=== PATIENT | male | born 1995 | race African-American/Black ===

== ENCOUNTER 2017-09-22 14:19 | Inpatient (IN) ==
[2017-09-23] MEDS ORDERED: Bisacodyl 10 MG Supp RECTAL PRN (01:22)
[2017-09-23] MEDS ORDERED: Zolpidem Tartrate 5 MG Tablet PO PRN (01:22)
[2017-09-23] MEDS ORDERED: Acetaminophen 325 MG Tablet PO PRN (01:22)
[2017-09-23] MEDS: Sod Chloride 0.9% Inj 1,000 ML IV.CONT SCH ×5 (02:14→23:00)
[2017-09-23 07:50] LABS: Baso % (Auto) 0.3 % (0.0-2.0); Eos # (Auto) 0.1 th/mm3 (0.0-0.4); Eos % (Auto) 0.9 % (0.0-4.0); Hematocrit 41.1 % (39.0-51.0); Lymph # (Auto) 3.2 th/mm3 (1.0-4.8); Lymph % (Auto) 38.2 % (9.0-44.0); Mean Corpuscular HGB Conc 34.8 % (32.0-36.0); Mean Corpuscular Hemoglobin 29.1 pg (27.0-34.0); Mean Platelet Volume 8.6 fL (7.0-11.0); Mono % (Auto) 12.2 % (0.0-8.0); Neut # (Auto) 4.1 th/mm3 (1.8-7.7); Neut % (Auto) 48.4 % (16.0-70.0); Platelet Count 184 th/mm3 (150-450); Red Blood Count 4.92 mil/mm3 (4.50-5.90); Red Cell Distribution Width 12.3 % (11.6-17.2); White Blood Count 8.4 th/mm3 (4.0-11.0)
[2017-09-23 07:57] LABS: Chloride 105 meq/L (98-107); Potassium 3.9 meq/L (3.5-5.1); Sodium 139 meq/L (136-145)
[2017-09-23 08:01] LABS: Albumin 3.7 g/dL (3.4-5.0); Anion Gap 5 meq/L (5-15); Blood Urea Nitrogen 15 mg/dL (7-18); Calcium 8.6 mg/dL (8.5-10.1); Carbon Dioxide 28.6 meq/L (21.0-32.0); Glucose,Random 95 mg/dL (74-106)
[2017-09-23 08:02] LABS: Hemoglobin 14.3 gm/dL (13.0-17.0); Mean Corpuscular Volume 83.5 fL (80.0-100.0)
[2017-09-23 08:04] LABS: Alanine Aminotransferase 37 U/L (9-52)
[2017-09-23 08:05] LABS: Aspartate Aminotransferase 52 U/L (15-39); Glomerular Filtration Rate Greater Than 89 mL/min (>89)
[2017-09-23 08:06] LABS: Total Protein 7.4 g/dL (6.4-8.2)
[2017-09-23 08:07] LABS: Alkaline Phosphatase 71 U/L (45-117)
[2017-09-23 08:19] LABS: Creatine Kinase 2567 U/L (39-308)
[2017-09-23 08:36] LABS: CKMB Percent 0.3 % (0.0-4.0)
--- NOTE | 2017-09-23 09:38 | P.HP ---
History of Present Illness Primary Care Physician: UNKNOWN Chief Complaint: Weakness History of Present Illness: This is a pleasant 21-year-old male patient who presented to the ED with complaints of generalized weakness and dehydration. Patient states that his symptoms started when he noticed a bee sting on his right hand roughly 5 days ago, states he saw his PCP, was given Solu-Medrol as well as Benadryl. Patient admits to taking 1 dose of Solu-Medrol and 1 dose of Benadryl, has been by started to improve. He states that around Wednesday during work, he became significantly weak, states he felt overheated with associated nausea and vomiting. 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 He states along with the symptoms he also had some chest tightness and shortness of breath which prompted his presentation to the ED. He denies any recent illness including fever, chills, cough, abdominal pain , nausea, vomiting, diarrhea or dysuria. Patient denies any medical history. He does state that he had asthma as a child although has not had any exacerbating symptoms since a young age. Patient denies any previous surgery. Denies any significant family medical history. Does not smoke cigarettes nor drink alcohol. Upon assessment today, patient states he feels much improved, almost at baseline. CPK on presentation was in the 3000s, has improved to 2500 today. Patient is eating well without any nausea or vomiting. He still feels relatively weak has not gotten out of bed yet today. Chest x-ray on presentation was negative. EKG reviewed showing sinus rhythm with no ST changes. CBC with mild leukocytosis. Some acute kidney injury noted although creatinine has improved today. - Diagnosis (1) Rhabdomyolysis Inpatient Certification: I certify that the inpatient services were ordered in accordance with Medicare regulations governing the order. This includes certification that hospital inpatient services are reasonable and necessary and in the case of services not specified as inpatient-only under 42 CFR 419.22(n), that they are appropriately provided as inpatient services in accordance to with the 2-midnight benchmark under 43 CFR 412.3(e) Estimated Total Length of Stay (Days): 2 Plans for Post Hospital Care: Home Review of Systems All other systems reviewed negative except as stated in HPI [facility] - History History Provided By: Patient - Medical History Medical History: Medical History (Last Reviewed 08/08/18 @ 15:41 by Isabelle Vaughn MD) Patient denies medical problems - Surgical History Surgical History: Surgical History (Last Reviewed 09/22/17 @ 15:42 by Isabelle Vaughn MD) H/O tympanostomy - Family History Family History: Family History (Last Updated 09/23/17 @ 12:47 by Cori Baca) Other No pertinent family history - Tobacco History Second Hand Smoke Exposure: No Tobacco Use In Past 30 Days: No Smoking Status: Current every day smoker Tobacco Type: E-Cigarettes - Alcohol History How Often Do You Have a Drink Containing Alcohol: Never - Substance Use History Substance History: No History of Abuse - Travel History Recent Travel in the [place] Within the Last 8 Weeks: No Recent Travel Out of the Country Within the Last 8 Weeks: No - Immunization History Tetanus Immunization: >5 Years Hx Influenza Vaccine This Season: No Medications and Allergies Active Medications: Active Medications Acetaminophen (Tylenol) 650 mg PO Q4H PRN PRN Reason: Temp > 100.4/CAMP[place]LL Al Hydroxide/Mg Hydroxide (Milk Of Magnesia Liq) 30 ml PO Q12H PRN PRN Reason: Mild Constipation Bisacodyl (Dulcolax Supp) 10 mg RECTAL DAILY PRN PRN Reason: SEVERE CONSITIPATION Sodium Chloride (Ns Inj) 1,000 mls @ 200 mls/hr IV.CONT .Q5H IAN Last Admin: 09/23/17 07:31 Dose: 200 mls/hr Lactulose (Lactulose Liq) 30 ml PO DAILY PRN PRN Reason: SEVERE CONSITIPATION Ondansetron HCl (Zofran Odt) 4 mg PO Q6H PRN PRN Reason: NAUSEA OR VOMITING Sennosides (Senokot) 17.2 mg PO Q12H PRN PRN Reason: Moderate Constipation Zolpidem Tartrate (Ambien) 5 mg PO HS PRN PRN Reason: INSOMNIA Allergies Allergy/AdvReac Type Severity Reaction Status Date / Time venom-wasp Allergy swelling Verified 09/22/17 14:31 Home Medications Medication Instructions Recorded Confirmed Type methylprednisolone [Medrol (Sylvester)] 4 mg PO DIRECTED 09/22/17 09/22/17 History Exam Vital signs: Vital Signs 09/23/17 00:00 09/23/17 08:00 Temperature 97.9 F 97.5 F L Pulse Rate 66 67 Respiratory Rate 20 17 Blood Pressure 125/78 98/57 L Pulse Oximetry 98 98 Intake & Output 09/22/17 09/23/17 09/23/17 18:59 06:59 18:59 Intake Total 1000 / 1000 Balance 1000 / 1000 Weight 99 kg Intake: IV 1000 / 1000 NS Inj 1,000 ML @ 200 mls/hr IV 1000 / 1000 .CONT .Q5H IAN Rx#:[id number] Other: Weight On Admission 99 kg Narrative: GENERAL: Well-developed, well-nourished patient in [facility]. SKIN: Warm and dry. No rash. HEAD: Normocephalic. Atraumatic. EYES: Pupils equal and round. No scleral icterus. No injection or drainage. ENT: No nasal bleeding or discharge. Mucous membranes pink and moist. NECK: Supple. Trachea midline. CARDIOVASCULAR: Regular rate and rhythm. S1, S2 noted. No murmur appreciated. RESPIRATORY: No accessory muscle use. Clear to auscultation. Breath sounds equal bilaterally. GASTROINTESTINAL: Abdomen soft, non-tender, nondistended. Normoactive bowel sounds x4. MUSCULOSKELETAL: No obvious deformities. Extremities without clubbing, cyanosis , or edema. NEUROLOGICAL: Awake and alert. No obvious cranial nerve deficits. Motor grossly within normal limits. 5/5 muscle strength in bilateral upper and lower extremities. Normal speech. PSYCHIATRIC: Appropriate mood and affect; insight and judgment normal. Results - Labs CBC & Chem 7: 09/23/17 07:40 09/23/17 07:40 Labs: Laboratory Results - last 24 hr 09/23/17 09/23/17 07:40 07:40 CBC w Diff Auto diff final WBC 8.4 RBC 4.92 Hgb 14.3 D Hct 41.1 MCV 83.5 D MCH 29.1 MCHC 34.8 RDW 12.3 Plt Count 184 MPV 8.6 Neut % (Auto) 48.4 Lymph % (Auto) 38.2 [place] % (Auto) 12.2 H Eos % (Auto) 0.9 Baso % (Auto) 0.3 Neut # (Auto) 4.1 Lymph # (Auto) 3.2 [place] # (Auto) 1.0 H Eos # (Auto) 0.1 Baso # (Auto) 0.0 WBC Differential . Differential Comment . Sodium 139 Potassium 3.9 Chloride 105 Carbon Dioxide 28.6 Anion Gap 5 BUN 15 Creatinine 1.10 Estimated GFR Greater than 89 Random Glucose 95 Calcium 8.6 Total Bilirubin 0.8 AST 52 H ALT 37 Alkaline Phosphatase 71 Total Creatine Kinase 2567 H CK-MB (CK-2) 8.0 H CK-MB (CK-2) % 0.3 Total Protein 7.4 D Albumin 3.7 D Caprini VTE Risk Assessment Caprini VTE Risk Assessment: No/Low Risk (score <= 1) Caprini Risk Assessment Model: Point Value = 1 Point Value = 2 Point Value = 3 Point Value = 5 Age 41-60 Minor surgery BMI > 25 kg/m2 Swollen legs Varicose veins or History of unexplained or recurrent spontaneous Oral contraceptives or hormone replacement Sepsis (< 1 month) Serious lung disease, including pneumonia (< 1 month) Abnormal pulmonary function Acute myocardial infarction Congestive heart failure (< 1 month) History of inflammatory bowel disease Medical patient at bed rest Age 61-74 Arthroscopic surgery Major open surgery (> 45 min) Laparoscopic surgery (> 45 min) Malignancy Confined to bed (> 72 hours) Immobilizing plaster cast Central venous access Age >= 75 History of VTE Family history of VTE Factor V Leiden Prothrombin [id number] Lupus anticoagulant Anticardiolipin antibodies Elevated serum homocysteine Heparin-induced thrombocytopenia Other congenital or acquired thrombophilia Stroke (< 1 month) Elective arthroplasty Hip, pelvis, or leg fracture Acute spinal cord injury (< 1 month) Prophylaxis Regimen: Total Risk Factor Score Risk Level Prophylaxis Regimen 0-1 Low Early ambulation 2 Moderate Order ONE of the following: *Sequential Compression Device (SCD) *Heparin 5000 units SQ BID 3-4 Higher Order ONE of the following medications: *Heparin 5000 units SQ TID *Enoxaparin/Lovenox 40 mg SQ daily (WT < 150 kg, CrCl > 30 mL/min) *Enoxaparin/Lovenox 30 mg SQ daily (WT < 150 kg, CrCl > 10-29 mL/min) *Enoxaparin/Lovenox 30 mg SQ BID (WT < 150 kg, CrCl > 30 mL/min) AND/OR *Sequential Compression Device (SCD) 5 or more Highest Order ONE of the following medications: *Heparin 5000 units SQ TID (Preferred with Epidurals) *Enoxaparin/Lovenox 40 mg SQ daily (WT < 150 kg, CrCl > 30 mL/min) *Enoxaparin/Lovenox 30 mg SQ daily (WT < 150 kg, CrCl > 10-29 mL/min) *Enoxaparin/Lovenox 30 mg SQ BID (WT < 150 kg, CrCl > 30 mL/min) AND *Sequential Compression Device (SCD) Assessment and Plan - Assessment (1) Rhabdomyolysis Code(s): M62.82 - Rhabdomyolysis Status: Acute - Plan This is a 21-year-old male patient with: Severe rhabdomyolysis suspect secondary to dehydration -Patient states that he presented with generalized weakness as well as nausea and vomiting. He does work outside in the heat, doing construction. -CPK in the 3000 upon presentation, improved slightly today. Will continue IV fluids. -Ensure hydration, advance diet as tolerated. Patient is tolerating p.o. intake well. -Recheck CPK level this afternoon, assess if improved. -Patient does state he feels improved overnight although he still feels weak. -Encouraged patient to ambulate around room. -Continue to monitor for improvement. Acute kidney injury suspect secondary to above Creatinine 1.4 on presentation, has improved to 1.0. Continue IV fluids. Monitor renal function. DVT prophylaxis: Ambulation. Discharge Planning: Await for clinical improvement. (1) Rhabdomyolysis Qualifiers: Rhabdomyolysis type: non-traumatic Qualified Code(s): M62.82 - Rhabdomyolysis
[2017-09-23 17:27] LABS: CKMB Percent 0.3 % (0.0-4.0); Creatine Kinase MB 7.6 ng/mL (0.5-3.6)
[2017-09-24] MEDS: Sod Chloride 0.9% Inj 1,000 ML IV.CONT SCH (04:01)
[2017-09-24 07:38] LABS: CKMB Percent 0.3 % (0.0-4.0); Creatine Kinase MB 5.3 ng/mL (0.5-3.6)
--- NOTE | 2017-09-24 07:40 | P.PN ---
Subjective Interval history: Follow-up rhabdomyolysis. Patient seen and examined, lying in bed comfortably in no apparent distress. Patient did well overnight. Weakness has improved. He is tolerating p.o. intake well. He is back to baseline. CPK trending down. Vital signs stable. Physical Exam Vital signs: Vital Signs 09/23/17 08:00 09/23/17 12:00 09/23/17 16:00 Temperature 97.5 F L 96.9 F L 96.6 F L Pulse Rate 67 66 62 Respiratory Rate 17 17 17 Blood Pressure 98/57 L 111/57 L 111/53 L Pulse Oximetry 98 98 99 09/23/17 20:00 09/24/17 00:00 Temperature 97.6 F 97.5 F L Pulse Rate 58 L 77 Respiratory Rate 16 18 Blood Pressure 142/92 H 138/69 Pulse Oximetry 99 95 Intake & Output 09/23/17 09/24/17 09/24/17 18:59 06:59 18:59 Intake Total 3000 / 3000 2000 / 2000 Balance 3000 / 3000 2000 / 2000 Weight 100.6 kg Intake: IV 3000 / 3000 2000 / 2000 NS Inj 1,000 ML @ 200 mls/hr IV 3000 / 3000 2000 / 2000 .CONT .Q5H [facility] Rx#:[id number] Other: Date of Last Bowel Movement 09/23/17 Narrative: GENERAL: Well-developed, well-nourished patient in [facility]. SKIN: Warm and dry. No rash. HEAD: Normocephalic. Atraumatic. EYES: Pupils equal and round. No scleral icterus. No injection or drainage. ENT: No nasal bleeding or discharge. Mucous membranes pink and moist. NECK: Supple. Trachea midline. CARDIOVASCULAR: Regular rate and rhythm. S1, S2 noted. No murmur appreciated. RESPIRATORY: No accessory muscle use. Clear to auscultation. Breath sounds equal bilaterally. GASTROINTESTINAL: Abdomen soft, non-tender, nondistended. Normoactive bowel sounds x4. MUSCULOSKELETAL: No obvious deformities. Extremities without clubbing, cyanosis , or edema. NEUROLOGICAL: Awake and alert. No obvious cranial nerve deficits. Motor grossly within normal limits. 5/5 muscle strength in bilateral upper and lower extremities. Normal speech. PSYCHIATRIC: Appropriate mood and affect; insight and judgment normal. Results - Labs CBC & Chem 7: 09/23/17 07:40 09/23/17 07:40 Laboratory Results - last 24 hr 09/23/17 09/23/17 09/23/17 07:40 07:40 16:25 CBC w Diff Auto diff final WBC 8.4 RBC 4.92 Hgb 14.3 D Hct 41.1 MCV 83.5 D MCH 29.1 MCHC 34.8 RDW 12.3 Plt Count 184 MPV 8.6 Neut % (Auto) 48.4 Lymph % (Auto) 38.2 [place] % (Auto) 12.2 H Eos % (Auto) 0.9 Baso % (Auto) 0.3 Neut # (Auto) 4.1 Lymph # (Auto) 3.2 [place] # (Auto) 1.0 H Eos # (Auto) 0.1 Baso # (Auto) 0.0 WBC Differential . Differential Comment . Sodium 139 Potassium 3.9 Chloride 105 Carbon Dioxide 28.6 Anion Gap 5 BUN 15 Creatinine 1.10 Estimated GFR Greater than 89 Random Glucose 95 Calcium 8.6 Total Bilirubin 0.8 AST 52 H ALT 37 Alkaline Phosphatase 71 Total Creatine Kinase 2567 H 2513 H CK-MB (CK-2) 8.0 H 7.6 H CK-MB (CK-2) % 0.3 0.3 Total Protein 7.4 D Albumin 3.7 D 09/24/17 05:38 CBC w Diff WBC RBC Hgb Hct MCV MCH MCHC RDW Plt Count MPV Neut % (Auto) Lymph % (Auto) [place] % (Auto) Eos % (Auto) Baso % (Auto) Neut # (Auto) Lymph # (Auto) [place] # (Auto) Eos # (Auto) Baso # (Auto) WBC Differential Differential Comment Sodium Potassium Chloride Carbon Dioxide Anion Gap BUN Creatinine Estimated GFR Random Glucose Calcium Total Bilirubin AST ALT Alkaline Phosphatase Total Creatine Kinase 1520 H CK-MB (CK-2) 5.3 H CK-MB (CK-2) % 0.3 Total Protein Albumin Assessment and Plan - Plan This is a 21-year-old male patient with: Severe rhabdomyolysis suspect secondary to dehydration -Patient states that he presented with generalized weakness as well as nausea and vomiting. He does work outside in the heat, doing construction. -CPK in the 3000 upon presentation, improved today. -Patient is tolerating p.o. intake well. -Patient does state he feels improved overnight. -Encouraged patient to ambulate around room. Ambulating well. Acute kidney injury suspect secondary to above Creatinine 1.4 on presentation, has improved to 1.0. DVT prophylaxis: Ambulation. Discharge Planning: Discharge home today. Follow-up PCP. Ensure hydration, encourage p.o. intake. Activity as tolerated.
== END 2017-09-24 12:00 | disposition home or self-care (01) ==
LOC: PH3 09-23 00:35 → PHEDDLT 09-23 00:35
PROVIDERS: ADMIT Hospitalist; ATTEND Hospitalist